=== PATIENT | male | born 1960 | race Caucasian/White ===

== ENCOUNTER 2020-10-12 06:15 | Observation (INO) ==
[2020-10-12] MEDS ORDERED: CeFAZolin Syr 2,000MG/20 ML 2,000 MG/20 ML SYRINGE IVPB ONE (06:31)
[2020-10-12] MEDS ORDERED: Ringers Solution, Lactated 1,000 ML IVC SCH (06:45)
[2020-10-12] MEDS ORDERED: *HR* FentaNYL (PF) 100 MCG/2 ML VIAL ONE ×2 (06:59→08:27)
[2020-10-12] MEDS ORDERED: *HR* Midazolam HCl 2 MG/2 ML VIAL ONE (06:59)
[2020-10-12] MEDS ORDERED: *HR* Propofol 200 MG/20 ML VIAL IVP ONE (06:59)
[2020-10-12] MEDS ORDERED: *HR* Rocuronium Bromide 50 MG/5 ML VIAL ONE ×2 (07:09→09:52)
[2020-10-12] MEDS ORDERED: Ondansetron 4 MG/2 ML VIAL ONE (07:09)
[2020-10-12] MEDS ORDERED: Lidocaine -MPF 2% 2 ML VIAL ONE (07:09)
[2020-10-12] MEDS ORDERED: Bupivacaine-MPF 0.25% 10 ML VIAL ONE (07:12)
[2020-10-12] MEDS ORDERED: *HR* HYDROmorphone PF 0.5 MG/0.5 ML SYRINGE IVP PRN (07:21)
[2020-10-12] MEDS ORDERED: Ondansetron 4 MG/2 ML VIAL IVP PRN ×2 (07:21→13:48)
[2020-10-12] MEDS ORDERED: *HR* OxyCODONE Immed Rel 5 MG TABLET PO PRN (07:21)
[2020-10-12] MEDS ORDERED: Dexmedetomidine HCl 400 MCG/100 ML MLS IVC ONE (07:31)
[2020-10-12] MEDS ORDERED: EPHEDrine 50 MG/ML VIAL ONE ×2 (08:07→11:31)
[2020-10-12] MEDS ORDERED: *HR* HYDROMORPHONE 2 MG/ML VIAL ONE (11:32)
[2020-10-12] MEDS ORDERED: Sugammadex Sodium 200 MG/2 ML VIAL IV ONE (11:45)
[2020-10-12] MEDS ORDERED: Ketorolac 30 MG/ML VIAL ONE (11:46)
[2020-10-12] MEDS ORDERED: Naloxone 0.4 MG/ML INJ IVP PRN (13:48)
[2020-10-12] MEDS ORDERED: Acetaminophen 325 MG TABLET PO PRN (13:48)
[2020-10-12] MEDS: CeFAZolin 2 GM/120 ML BAG IVPB SCH (15:48)
[2020-10-12] MEDS: *HR* Heparin 5,000 UNIT/ML VIAL SQ SCH (17:59)
[2020-10-12] MEDS: *HR* OxyCODONE/APAP 10/325 TABLET PO PRN (20:12)
[2020-10-12] MEDS: 0.9 % Sodium Chloride 1,000 ML IVC SCH (20:15)
[2020-10-12] MEDS: Gabapentin 300 MG CAPSULE PO SCH (20:16)
[2020-10-12] MEDS: levETIRAcetam 250 MG TABLET PO SCH (20:17)
[2020-10-13] MEDS: CeFAZolin 2 GM/120 ML BAG IVPB SCH (00:02)
[2020-10-13] MEDS: 0.9 % Sodium Chloride 1,000 ML IVC SCH ×2 (04:34→08:47)
[2020-10-13] MEDS: *HR* Heparin 5,000 UNIT/ML VIAL SQ SCH (05:31)
[2020-10-13 06:28] LABS: BUN/Creatinine Ratio 19 (6-26); Blood Urea Nitrogen 18 mg/dL (6-20); Carbon Dioxide 27 mEq/L (23-29); Chloride 105 mEq/L (98-107); Glucose 123 mg/dL (70-105); Osmolality,Calculated 289 (280-300); Potassium 4.5 mEq/L (3.5-5.1); Sodium 138 mEq/L (136-145); eGFR For African Americans > 60 (> 60); eGFR For Non-African Americans > 60 (> 60)
[2020-10-13 07:04] LABS: Hematocrit 37.9 % (37.5-50.1); Hemoglobin 13.2 g/dL (12.9-16.9); Mean Corpuscular HGB Conc 34.8 g/dL (31.6-35.5); Mean Corpuscular Hemoglobin 31.7 pg (28.0-33.3); Mean Corpuscular Volume 91.1 fL (83.0-100.0); Mean Platelet Volume 11.5 fL (9.4-12.4); Platelet Count 160 K/mcL (140-400); Red Blood Count 4.16 M/mcL (4.19-5.50); Red Cell Distribution Width 12.1 % (11.5-14.5)
[2020-10-13] MEDS: levETIRAcetam 250 MG TABLET PO SCH ×2 (08:49→20:28)
[2020-10-13] MEDS: *HR* OxyCODONE/APAP 10/325 TABLET PO PRN ×2 (08:49→19:14)
[2020-10-13] MEDS: Gabapentin 300 MG CAPSULE PO SCH (20:29)
[2020-10-14 03:18] LABS: Hematocrit 36.1 % (37.5-50.1); Hemoglobin 12.6 g/dL (12.9-16.9); Mean Corpuscular HGB Conc 34.9 g/dL (31.6-35.5); Mean Corpuscular Volume 91.6 fL (83.0-100.0); Mean Platelet Volume 11.5 fL (9.4-12.4); Platelet Count 122 K/mcL (140-400); Red Blood Count 3.94 M/mcL (4.19-5.50); Red Cell Distribution Width 12.1 % (11.5-14.5); White Blood Count 12.1 K/mcL (4.3-11.1)
[2020-10-14 09:32] VITALS: BP 117/70; PULSE 86; TEMP 98.5; O2SAT 93
[2020-10-14] MEDS: levETIRAcetam 250 MG TABLET PO SCH (10:53)
== END 2020-10-14 13:05 | disposition home or self-care (01) ==
LOC: 3ANU 06:15 → SAMDAY 06:15 → 3ANU 13:35
PROVIDERS: ADMIT Urology; ATTEND Urology

== ENCOUNTER 2021-02-02 13:17 | Observation (INO) ==
[2021-02-02] MEDS ORDERED: levETIRAcetam 1,000 MG in 0.9 % Sodium Chloride 100 ML IVPB ONE (16:25)
[2021-02-02] MEDS ORDERED: 0.9 % Sodium Chloride 1,000 ML IVC ONE (16:25)
[2021-02-02 17:04] LABS: Basophils % 0.2 %; Eosinophils % 0.1 %; Hematocrit 48.7 % (37.5-50.1); Hemoglobin 17.2 g/dL (12.9-16.9); Immature Granulocytes % 0.5 % (0-4); Lymphocytes # 1.9 K/mcL (0.6-4.6); Lymphocytes % 16.9 %; Mean Corpuscular HGB Conc 35.3 g/dL (31.6-35.5); Mean Corpuscular Hemoglobin 31.2 pg (28.0-33.3); Mean Corpuscular Volume 88.4 fL (83.0-100.0); Mean Platelet Volume 10.8 fL (9.4-12.4); Monocytes # 0.5 K/mcL (0.0-1.3); Monocytes % 4.2 %; Neutrophils # 8.7 K/mcL (1.6-8.9); Platelet Count 223 K/mcL (140-400); Red Blood Count 5.51 M/mcL (4.19-5.50); Red Cell Distribution Width 12.3 % (11.5-14.5); Segmented Neutrophils % 78.1 %; White Blood Count 11.1 K/mcL (4.3-11.1)
[2021-02-02 17:13] LABS: Amphetamine Screen,Urine Negative ng/mL (Cutoff=1000); Barbiturate Screen,Urine Negative ng/mL (Cutoff=200); Benzodiazepines Screen,Urine Negative ng/mL (Cutoff=200); Cannabinoid Screen,Urine Positive ng/mL (Cutoff = 50); Cocaine Screen,Urine Negative ng/mL (Cutoff= 300); Opiate Screen,Urine Negative ng/mL (Cutoff=300); Phencyclidine Screen,Urine Negative ng/mL (Cutoff=25)
[2021-02-02 17:15] LABS: Bacteria,Urine Few per hpf (None-Few); Bilirubin,Urine Negative (Negative); Blood,Urine Small (Negative); Clarity,Urine Clear (Clear); Color,Urine Yellow (Yellow); Glucose,Urine (UA) Normal (Normal); Ketones,Urine 10 mg/dL (Negative); Leukocyte Esterase,Urine Negative (Negative); Mucus,Urine Many per lpf (None-Few); Nitrite,Urine Negative (Negative); Protein,Urine 30 mg/dL (Neg-Trace); RBC,Urine 15-30 per hpf (0-3); Squamous Epithelial Cell,Urine Few per hpf (None-Few); Urobilinogen,Urine Normal (Normal)
[2021-02-02 17:33] LABS: Alanine Aminotransferase 12 Units/L (7-52); Albumin 5.2 g/dL (3.5-5.7); Albumin/Globulin Ratio 1.9 (1.1-2.2); Alkaline Phosphatase 65 Units/L (34-104); Aspartate Amino Transferase 15 Units/L (13-39); BUN/Creatinine Ratio 21 (6-26); Bilirubin,Total 0.8 mg/dL (0.3-1.0); Blood Urea Nitrogen 20 mg/dL (6-20); Calcium 10.1 mg/dL (8.6-10.3); Carbon Dioxide 27 mEq/L (23-29); Chloride 101 mEq/L (98-107); Globulin 2.7 g/dL (2.4-3.5); Glucose 99 mg/dL (70-105); Magnesium 2.1 mg/dL (1.6-2.6); Osmolality,Calculated 287 (280-300); Phosphorous 1.9 mg/dL (2.7-4.5); Potassium 3.8 mEq/L (3.5-5.1); Sodium 137 mEq/L (136-145); Total Protein 7.9 g/dL (6.4-8.9); Troponin I < 0.03 ng/mL (< 0.04); eGFR For African Americans > 60 (> 60); eGFR For Non-African Americans > 60 (> 60)
[2021-02-02 17:40] LABS: Influenza A PCR Negative (Negative); Influenza B PCR Negative (Negative); Resp. Syncytial Virus PCR Negative (Negative)
[2021-02-02 17:41] LABS: SARS-CoV-2 by PCR (In House) Negative (Negative)
[2021-02-02 17:57] LABS: INR 1.1; Prothrombin Time 11.9 Seconds (9.4-12.1)
[2021-02-02 17:59] LABS: Activated Partial Thrombo Time 34.3 Seconds (26.0-36.0)
[2021-02-02] MEDS ORDERED: Acetaminophen 325 MG TABLET PO PRN (20:38)
[2021-02-02] MEDS ORDERED: Melatonin 3 MG TABLET PO PRN (20:38)
[2021-02-02] MEDS ORDERED: Naloxone 0.4 MG/ML INJ IVP PRN (20:38)
[2021-02-02] MEDS ORDERED: Ondansetron 4 MG/2 ML VIAL IVP PRN (20:38)
[2021-02-03 02:24] LABS: Basophils % 0.2 %; Eosinophils % 0.1 %; Hematocrit 40.5 % (37.5-50.1); Immature Granulocytes % 0.2 % (0-4); Lymphocytes # 1.8 K/mcL (0.6-4.6); Lymphocytes % 21.6 %; Mean Corpuscular HGB Conc 35.6 g/dL (31.6-35.5); Mean Corpuscular Hemoglobin 31.6 pg (28.0-33.3); Mean Platelet Volume 10.9 fL (9.4-12.4); Monocytes # 0.5 K/mcL (0.0-1.3); Monocytes % 6.2 %; Platelet Count 198 K/mcL (140-400); Red Blood Count 4.55 M/mcL (4.19-5.50); Red Cell Distribution Width 12.2 % (11.5-14.5); Segmented Neutrophils % 71.7 %; White Blood Count 8.4 K/mcL (4.3-11.1)
[2021-02-03 02:27] LABS: Hemoglobin 14.4 g/dL (12.9-16.9)
[2021-02-03 02:34] LABS: Alanine Aminotransferase 9 Units/L (7-52); Albumin 4.1 g/dL (3.5-5.7); Albumin/Globulin Ratio 2.2 (1.1-2.2); Alkaline Phosphatase 51 Units/L (34-104); Aspartate Amino Transferase 12 Units/L (13-39); BUN/Creatinine Ratio 23 (6-26); Bilirubin,Total 0.9 mg/dL (0.3-1.0); Blood Urea Nitrogen 20 mg/dL (6-20); Calcium 8.9 mg/dL (8.6-10.3); Carbon Dioxide 25 mEq/L (23-29); Chloride 106 mEq/L (98-107); Globulin 1.9 g/dL (2.4-3.5); Glucose 106 mg/dL (70-105); Osmolality,Calculated 289 (280-300); Phosphorous 2.7 mg/dL (2.7-4.5); Potassium 3.9 mEq/L (3.5-5.1); Sodium 138 mEq/L (136-145); eGFR For African Americans > 60 (> 60); eGFR For Non-African Americans > 60 (> 60)
[2021-02-03 11:35] VITALS: O2SAT 95
[2021-02-03 14:57] VITALS: BP 114/70; PULSE 56; TEMP 98.4
== END 2021-02-03 16:07 | disposition home or self-care (01) ==
LOC: EMEROOARM 13:17 → 3BNU 13:17 → SUATTDRO 19:16 → 3BNU 19:56
PROVIDERS: ADMIT Hospitalist; ATTEND Family Medicine